=== PATIENT | male | born 2005 | race Caucasian/White ===

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

== ENCOUNTER 2025-05-28 20:01 | Emergency (ER) | payer OTHER ==
[~2025-05-28] VITALS: Ht 185.4 cm; Wt 95.2 kg
[~2025-05-28 20:01] MED LIST: AMOCLA875 PO; Amoxicillin500 MG PO
[2025-05-28 20:15] VITALS: BP 155/100
== END 2025-05-28 21:30 | disposition home or self-care (01) ==
LOC: ER 20:01
DX: S40.012A Contusion of left shoulder, initial encounter (principal); S20.219A Contusion of unspecified front wall of thorax, initial encounter; M25.562 Pain in left knee; V60.5XXA Driver of heavy transport vehicle injured in collision with pedestrian or animal in traffic accident, initial encounter
CPT/HCPCS: 71046; 73030; 99284-25